=== PATIENT | male | born 1960 | race Caucasian/White ===

== ENCOUNTER → 2020-12-30 | Day surgery (SDC) | payer OTHER ==
[~2020-12-30] MED LIST: ASPIRIN EC81 MG PO; HCTZ25 MG PO; IRON325 M1 PO; LOVAZA1 GM PO; MULTIVITAMIN1 EACH PO; OCUVITE ADULT1 EAC1 PO; OCUVITE WITH L1 EACH PO; PEPCID AC20 MG PO
== END | disposition home or self-care (01) ==
LOC: FAS 06:05
DX: M16.0 Bilateral primary osteoarthritis of hip (principal); K21.9 Gastro-esophageal reflux disease without esophagitis; I10 Essential (primary) hypertension; Z20.822 Contact with and (suspected) exposure to COVID-19; Z90.49 Acquired absence of other specified parts of digestive tract; Z98.890 Other specified postprocedural states
CPT/HCPCS: 76000; J1040; J2001; J2250; J2704; J7120; Q9967

== ENCOUNTER 2021-06-16 18:32 | Emergency (ER) | payer OTHER ==
[2021-06-16 18:53] LABS: BASOPHIL 0.4 % (0-2); EOSINOPHIL 1.3 % (0-5); HCT 49.2 % (42.0-52.0); HGB 17.1 g/dl (13.2-18.0); LYMPHOCYTE 24.3 % (15-48); MCHC 34.8 g/dL (32.0-36.0); MONOCYTE 12.5 % (0-12); MPV 11.2 fL (6.0-9.5); NEUTROPHIL 61.2 % (41-80); NRBC 0; PLT 161 K/uL (150-400); RBC 5.35 M/uL (4.70-6.00); RDW 12.7 % (11.5-14.0); WBC 7.7 K/uL (4.0-10.5)
[2021-06-16 19:10] LABS: INR 1.11 (0.9-1.2); PROTHROMBIN TIME 13.7 SECONDS (11.8-13.4); PTT 20.9 SECONDS (24.4-34.7)
[2021-06-16 19:10] LABS: ALBUMIN 3.9 g/dL (3.4-5.0); BILIRUBIN - TOTAL 0.6 mg/dL (0.2-1.0); CREATININE 1.23 mg/dL (0.67-1.17); GLOBULIN (CALCULATION) 3.5 g/dL; TOTAL PROTEIN 7.4 g/dL (6.4-8.2)
== END 2021-06-16 20:38 | disposition left against medical advice (07) ==
LOC: FER 18:32
PROVIDERS: Internal Medicine
DX: R07.89 Other chest pain (principal); R42 Dizziness and giddiness; I10 Essential (primary) hypertension; Z53.8 Procedure and treatment not carried out for other reasons
CPT/HCPCS: 36415; 71045; 80053; 84484; 85025; 85610; 85730; 93005